=== PATIENT | male | born 1965 | race African-American/Black ===

== ENCOUNTER 2016-10-14 10:32 | Emergency (ER) | payer OTHER ==
[~2016-10-14] VITALS: Ht 193 cm; Wt 95.3 kg
[~2016-10-14 10:32] MED LIST: ALBUTEROL SULF8.5 GM INH; AUGMENTIN 875-1 EAC1 ORAL
[2016-10-14] MEDS ORDERED: IBUPROFEN600 MG ORAL (11:50)
[2016-10-14 12:02] VITALS: BP 110/69
[2016-10-14 12:22] VITALS: BP 110/69
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
--- NOTE | 2016-10-15 10:23 | Diagnostic Imaging Report ---
Indication: Right hand pain Technique: XRAY HAND MIN 3V RIGHT Comparison: None Findings: There is an obliquely oriented fracture of the second metacarpal head and neck. There is a chronic appearing fracture deformity of the fifth metacarpal neck. Bone mineralization is normal. Soft tissue swelling is seen. Impression: Acute obliquely oriented fracture of the second metacarpal head and neck. Chronic appearing fracture of the fifth metacarpal.
== END 2016-10-14 12:24 | disposition home or self-care (01) ==
LOC: EMR 10:59
DX: S62.330A Displaced fracture of neck of second metacarpal bone, right hand, initial encounter for closed fracture (principal); Y04.0XXA Assault by unarmed brawl or fight, initial encounter; Y92.9 Unspecified place or not applicable; Y99.9 Unspecified external cause status
CPT/HCPCS: 99283

== ENCOUNTER 2017-11-06 09:31 | Emergency (ER) | payer OTHER ==
[~2017-11-06] VITALS: Ht 193 cm; Wt 99.8 kg
[~2017-11-06 09:31] MED LIST changes: +IBUPROFEN600 MG ORAL
[2017-11-06] MEDS ORDERED: NKM (09:41)
--- NOTE | 2017-11-06 10:01 | Emergency Room Report ---
History of Present Illness General Chief Complaint: Lower Extremity Injury Source: Patient Present Illness HPI 52-year-old male, no significant past medical history, presenting with left ankle pain. Patient states that he twisted it while walking, did not fall or hit his head. Now complaining of pain to his left foot. And swelling. No other complaints Allergies: Coded Allergies: No Known Allergies (Unverified , 10/30/15) Patient History Past Medical History: see triage record Past Surgical History: none Pertinent Family History: none Reviewed Nursing Documentation: PMH: Agreed, PSxH: Agreed Nursing Documentation-PMH Past Medical History: No Stated History Review of Systems All Other Systems: negative except mentioned in HPI Physical Exam Vital Signs Date Time Temp Pulse Resp B/P (MAP) Pulse Ox O2 Delivery O2 Flow Rate FiO2 11/06/17 09:36 97.4 77 16 97 Room Air 97.3 Sp02 EP Interpretation: reviewed, normal General Appearance: normal inspection, well appearing, no apparent distress, alert, GCS 15, non-toxic Head: normocephalic, atraumatic Eyes: bilateral eye normal inspection, bilateral eye PERRL, bilateral eye EOMI ENT: normal ENT inspection, normal pharynx, normal voice, moist mucus membranes Neck: normal inspection, full range of motion, supple Respiratory: normal inspection, lungs clear, normal breath sounds, no respiratory distress, no retraction, no wheezing, speaking full sentences, chest symmetrical Cardiovascular #1: normal inspection, regular rate, rhythm, normal capillary refill Cardiovascular #2: 2+ radial (R), 2+ radial (L), 2+ dorsalis pedis (R), 2+ dorsalis pedis (L) Gastrointestinal: normal inspection, non tender, soft, non-distended, no guarding Musculoskeletal: other - Left foot with swelling, tender to palpation, base of fifth metatarsal tenderness, limited range of motion ankle secondary to pain, distal pulses intact Neurologic: normal inspection, alert, oriented x3, responsive, motor strength/ tone normal, sensory intact, normal gait, speech normal Psychiatric: normal inspection, judgement/insight normal, memory normal Skin: normal inspection, normal color, no rash, warm/dry, well hydrated, normal turgor Procedures Splinting Splinting : Consent: Emergent Location: L foot Pre-Made Type: MARTI wrap Pre-Proc Neuro Vasc Exam: normal Post-Proc Neuro Vasc Exam: normal Patient Tolerated: Well Complications: None Medical Decision Making Diagnostic Impression: Primary Impression: Foot contusion ER Course 52-year-old male with left ankle pain DDX: Sprain/strain vs. fracture Plan: Pain control with motrin XR ER course: Patient reports improvement of pain with motrin. XR reveals soft tissue swelling - on FOOT XR- no acute FX marti wrap placed Disposition: Patient is to be discharged home with a prescription of motrin. Patient educated to rest, ice, and elevate extremity and to avoid vigorous activity. Strict precautions discussed with patient on when to return to the emergency room including increased redness or swelling joints, increased pain/swelling of extremity, fever or chills, which could indicate severe illness. told to FU with orthopedics in 1-2 weeks if not better as may need furhter imaging outpatient. Please note that this Emergency Department Report was dictated using [employer] cutting machine operator helper technology software, occasionally this can lead to erroneous entry secondary to interpretation by the dictation equipment. Xray ordered: Left foot 3 view Indication: Pain EP Interpretation: Yes IMPRESSION: No acute FX, + soft tissue swelling Electronically signed by Ismael Grijalva MD Xray: Left ankle 3 view Complete Indication: Pain EP Interpretation: Yes 3 views of the left ankle obtained. There is small osseous focus that is faint in the lateral aspect of the hindfoot probably sales representatives of mild avulsive injury. Soft tissue swelling noted. IMPRESSION: Suspected avulsion injury in the lateral hindfoot Electronically signed by Ismael Grijalva MD Last Vital Signs Date Time Temp Pulse Resp B/P (MAP) Pulse Ox O2 Delivery O2 Flow Rate FiO2 11/06/17 09:36 97.4 77 16 97 Room Air 97.3 Disposition: HOME, SELF-CARE Condition: Improved Ismael Grijalva M.D. Nov 06, 2017 10:01
--- NOTE | 2017-11-06 10:34 | Diagnostic Imaging Report ---
Indication: Pain Comparison: None Findings: 3 views of the left foot were obtained. No acute fractures, malalignment, erosions or periostitis are identified. Soft tissues are unremarkable. Impression: No acute findings
--- NOTE | 2017-11-06 10:35 | Diagnostic Imaging Report ---
Indication: left ankle pain Comparison: None Findings: 3 views of the left ankle obtained. There is small osseous focus that is faint in the lateral aspect of the hindfoot probably product support representative of mild avulsive injury. Soft tissue swelling noted. IMPRESSION: Suspected avulsion injury in the lateral hindfoot
[2017-11-06] MEDS ORDERED: IBUPROFEN600 MG ORAL (11:48)
[2017-11-06 12:10] VITALS: BP 118/75
== END 2017-11-06 12:11 | disposition home or self-care (01) ==
LOC: EMR 10:22
DX: S90.32XA Contusion of left foot, initial encounter (principal); X50.1XXA Overexertion from prolonged static or awkward postures, initial encounter; Y93.01 Activity, walking, marching and hiking; Y92.9 Unspecified place or not applicable
CPT/HCPCS: 99284

== ENCOUNTER 2018-07-17 14:04 | Emergency (ER) | payer OTHER ==
[~2018-07-17] VITALS: Ht 185.4 cm; Wt 81.6 kg
[~2018-07-17 14:04] MED LIST changes: +NKM
[2018-07-17] MEDS ORDERED: Ketorolac 60mg Inj IM ONE (14:30)
[2018-07-17] MEDS ORDERED: NAPROXEN375 M2 ORAL (14:33)
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
[2018-07-17 16:12] VITALS: BP 145/86
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
--- NOTE | 2018-07-17 16:27 | Diagnostic Imaging Report ---
Indication: Chest pain Technique: One view of the chest Comparison: 10/30/2015 Findings: Lungs and pleural spaces are clear. Heart size is normal. No significant interim change Impression: No acute process
== END 2018-07-17 16:22 | disposition home or self-care (01) ==
LOC: EDBD 14:04 → EMR 14:46
DX: M25.551 Pain in right hip (principal); R07.9 Chest pain, unspecified; V43.52XA Car driver injured in collision with other type car in traffic accident, initial encounter; Y92.410 Unspecified street and highway as the place of occurrence of the external cause
CPT/HCPCS: 71045; 72170; 96372; 99284

== ENCOUNTER 2018-12-16 22:12 | Emergency (ER) | payer OTHER ==
[~2018-12-16] VITALS: Ht 193 cm; Wt 95.3 kg
[~2018-12-16 22:12] MED LIST changes: +NAPROXEN375 M2 ORAL
[2018-12-16 22:30] VITALS: BP 147/88
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
[2018-12-16] MEDS ORDERED: NKM (22:40)
[2018-12-16] MEDS ORDERED: Augmentin 875mg Tab ORAL ONE (23:00)
[2018-12-16] MEDS ORDERED: Lidocaine 1% Plain 30 ml INJ ONE (23:45)
--- NOTE | 2018-12-17 00:27 | NUR ---
ER Nurse Note: All orders completed per ERMD orders. Pt is getting out of his room, easily reorientated. Pt calm, cooperative, no signs of distress. Awaiting results from x-ray. Will continue to [facility].
[2018-12-17] MEDS ORDERED: AUGMENTIN 875-1 EAC1 ORAL (00:34)
[2018-12-17] MEDS ORDERED: IBUPROFEN600 MG ORAL (00:34)
[2018-12-17 00:45] VITALS: BP 140/82
--- NOTE | 2018-12-17 00:45 | NUR ---
ER Nurse Note: Pt seen, treated, medically cleared for discharge by ERMD. Discharge instructions and prescriptions given with repeat verbalization by pt. Instructed pt to follow up with primary care physican within one week. Pt a&ox4, VSS, no signs of acute distress. Splint applied by coal gasification technician. ID band removed. Pt left with all belongings.
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
--- NOTE | 2018-12-17 19:15 | Diagnostic Imaging Report ---
Indication: left hand pain. Findings: 3 views of the left hand were obtained. There is an acute comminuted fracture of the distal aspect of the second metacarpal. Soft tissue swelling and some air noted. There is an old fracture of the first metacarpal noted. There is increased distance between the scaphoid and lunate suggestive of scapholunate dissociation. IMPRESSION: Acute second metacarpal fracture. Other findings as above
== END 2018-12-17 00:45 | disposition home or self-care (01) ==
LOC: EMR 22:41
DX: S62.391A Other fracture of second metacarpal bone, left hand, initial encounter for closed fracture (principal); S61.231A Puncture wound without foreign body of left index finger without damage to nail, initial encounter; Y04.2XXA Assault by strike against or bumped into by another person, initial encounter; Y92.9 Unspecified place or not applicable
CPT/HCPCS: 73130; 99283; J2001